=== PATIENT | male | born 1965 ===

== ENCOUNTER 2016-05-30 14:09 | Emergency (ER) | payer OTHER ==
--- NOTE | 2016-05-30 15:45 | C.PDOC ---
History Of Present Illness 50 year old male presents to the ED c/o lower back pain for several months. Patient notes pain worsen with movement and denies taking any OTC meds nor radiation of pain. Patient denies weakness or numbness, vomiting, fever, chills , SOB, chest pain, or any other complaints. Time Seen by Provider: 05/30/16 14:49 Chief Complaint (Nursing): Back Pain History Per: Patient History/Exam Limitations: no limitations Onset/Duration Of Symptoms: Days Current Symptoms Are (Timing): Still Present Severity: Mild Past Medical History Reviewed: Historical Data, Nursing Documentation, Vital Signs Vital Signs: Last Vital Signs Temp 98.2 F 05/30/16 17:06 Pulse 84 05/30/16 17:06 Resp 16 05/30/16 17:06 BP 134/84 05/30/16 17:06 Pulse Ox 99 05/30/16 17:06 - Medical History PMH: HTN Family History: States: Unknown Family Hx - Social History Hx Alcohol Use: No Hx Substance Use: No Review Of Systems Except As Marked, All Systems Reviewed And Found Negative. Constitutional: Negative for: Fever, Chills Cardiovascular: Negative for: Chest Pain Respiratory: Negative for: Shortness of Breath Gastrointestinal: Negative for: Nausea, Vomiting Musculoskeletal: Positive for: Back Pain (Lower back pain) Neurological: Negative for: Weakness (Lower back), Numbness (Lower back) Physical Exam - Physical Exam Appears: Non-toxic, No Acute Distress Skin: Warm, Dry Back: Vertebral Tenderness (Mild Lumbar tenderness L4 S1) Neurological/Psych: Oriented x3, Normal Speech, Normal Cognition, No Cerebellar Signs, Normal Motor, Normal Sensation ED Course And Treatment O2 Sat by Pulse Oximetry: 100 (Room air) Pulse Ox Interpretation: Normal Medical Decision Making Medical Decision Making: Plans: -Toradol -X-Ray LS spine X Rays unremarkable, Plan meds at home clinic f/u Disposition Counseled Patient/Family Regarding: Diagnosis, Need For Followup - Disposition Disposition: HOME/ ROUTINE Disposition Time: 16:32 Condition: GOOD Prescriptions: Naproxen [Naprosyn] 1 tab PO BID PRN #25 tab PRN Reason: Pain Instructions: Back Pain (ED) Print Language: AUSTRALIAN - Clinical Impression Clinical Impression: Low back pain - Scribe Statement The provider has reviewed the documentation as recorded by the Scribcami gonzalez All medical record entries made by the Scribe were at my direction and personally dictated by me. I have reviewed the chart and agree that the record accurately reflects my personal performance of the history, physical exam, medical decision making, and the department course for this patient. I have also personally directed, reviewed, and agree with the discharge instructions and disposition.
--- NOTE | 2016-05-30 16:45 | RAD ---
PROCEDURE: Radiographs of the Lumbar Spine. HISTORY: pain COMPARISON: Lumbosacral radiographs performed 01/20/12 FINDINGS: BONES: Alignment appears satisfactory. No listhesis. No acute displaced fracture identified. Mild degenerative changes including small anterior osteophyte formation. DISC SPACES: Intervertebral disc space narrowing. Vacuum disc phenomenon noted at L3-L4 and L5-S1. OTHER FINDINGS: None. IMPRESSION: Degenerative changes.
[2016-05-30 17:27] VITALS: BP 134/84; PULSE 84; RESP 16; TEMP 98.2
[2016-06-01 14:20] VITALS: O2SAT 100
== END 2016-05-30 17:26 | disposition home or self-care (01) ==
LOC: C.ER 14:09
DX: M54.5 Low back pain (principal)
CPT/HCPCS: 72100; 96372; 99283; J1885

== ENCOUNTER 2016-07-19 16:11 | Emergency (ER) | payer OTHER ==
[2016-07-19 16:16] VITALS: BP 160/83; PULSE 94; RESP 20; TEMP 98.1; O2SAT 100
--- NOTE | 2016-07-19 17:01 | C.PDOC ---
History Of Present Illness 50 yr old male presents to the ER with complaints of chronic back pain for the past 2 months. Patient reports using Tylenol and Advil for the pain. Denies chest pain, SOB, nausea, vomiting, abdominal pain, diarrhea, dysuria, hematuria , incontinence, saddle anesthesia, weakness or numbness. Time Seen by Provider: 07/19/16 16:30 Chief Complaint (Nursing): Back Pain History Per: Patient History/Exam Limitations: no limitations Onset/Duration Of Symptoms: Persistent (2 months ) Past Medical History Reviewed: Historical Data, Nursing Documentation, Vital Signs Vital Signs: Last Vital Signs Temp 98.1 F 07/19/16 16:14 Pulse 94 H 07/19/16 16:14 Resp 20 07/19/16 16:14 BP 160/83 H 07/19/16 16:14 Pulse Ox 100 07/19/16 17:03 - Medical History PMH: HTN Family History: States: No Known Family Hx - Social History Hx Alcohol Use: No Hx Substance Use: No Review Of Systems Except As Marked, All Systems Reviewed And Found Negative. Cardiovascular: Negative for: Chest Pain Respiratory: Negative for: Shortness of Breath Gastrointestinal: Negative for: Nausea, Vomiting, Abdominal Pain, Diarrhea Genitourinary: Negative for: Dysuria, Incontinence, Hematuria Musculoskeletal: Positive for: Back Pain, Other (No saddle anesthesia ) Neurological: Negative for: Weakness, Numbness Physical Exam - Physical Exam Appears: Well, Non-toxic, No Acute Distress Skin: Warm, Dry Head: Atraumatic, Normacephalic Chest: Symmetrical, No Tenderness Cardiovascular: Rhythm Regular, No Murmur Respiratory: Normal Breath Sounds, No Rales, No Rhonchi, No Stridor, No Wheezing Gastrointestinal/Abdominal: Normal Exam, Soft, No Tenderness, No Guarding, No Rebound Back: Other ((+) Hypertonicity of the lower back.) Extremity: Normal ROM, No Swelling Neurological/Psych: Oriented x3, Normal Speech, Normal Motor ED Course And Treatment O2 Sat by Pulse Oximetry: 100 Medical Decision Making Medical Decision Making: PLAN: * Flexeril PO * Motrin PO Disposition - Disposition [facility]errals: [facility]Non[facility]Staff[facility] - Disposition: HOME/ ROUTINE Disposition Time: 16:30 Condition: GOOD Additional Instructions: Thank you for letting us take care of you today. Your provider was Dr. Felton. You were treated for chronic lower back pain. The emergency medical care you received today was directed at your acute symptoms. If you were prescribed any medication, please fill it and take as directed. It may take several days for your symptoms to resolve. Return to the Emergency Department if your symptoms worsen, do not improve, or if you have any other problems. Please contact your doctor or call one of the physicians/clinics you have been referred to that are listed on the Patient Visit Information form that is included in your discharge packet. Bring any paperwork you were given at discharge with you along with any medications you are taking to your follow up visit. Our treatment cannot replace ongoing medical care by a primary care provider (PCP) outside of the emergency department. Thank you for allowing the [facility] team to be part of your care today. Follow up with your doctor in 3-4 days for re-evaluation. You can take the muscle relaxer with acetaminophen or ibuprofen. Prescriptions: Cyclobenzaprine [Cyclobenzaprine HCl] 10 mg PO Q8 PRN #20 tab PRN Reason: Muscle Spasm Instructions: Chronic Back Pain (ED) - Clinical Impression Clinical Impression: Chronic back pain - Scribe Statement The provider has reviewed the documentation as recorded by the Pennyibcami Simons Provider Attestation: All medical record entries made by the Desmond were at my direction and personally dictated by me. I have reviewed the chart and agree that the record accurately reflects my personal performance of the history, physical exam, medical decision making, and the department course for this patient. I have also personally directed, reviewed, and agree with the discharge instructions and disposition.
== END 2016-07-19 16:52 | disposition home or self-care (01) ==
LOC: C.ER 16:11
DX: G89.29 Other chronic pain (principal); M54.5 Low back pain

== ENCOUNTER 2016-08-25 18:44 | Emergency (ER) | payer OTHER ==
[2016-08-25 18:51] VITALS: TEMP 98.1; O2SAT 100
[2016-08-25] MEDS ORDERED: Oxycodone/Acetaminophen 5/325 mg Tab PO STA (20:01)
[2016-08-25] MEDS ORDERED: Oxycodone/Acetaminophen 5/325 mg Tab ONE (20:07)
[2016-08-25] MEDS ORDERED: Lidocaine 1% Inj (20ml) ONE (20:16)
--- NOTE | 2016-08-25 20:35 | C.PDOC ---
History Of Present Illness 50 y/o male presents to the ED for evaluation of pain, swelling and redness to left 3rd finger which began around 1 week ago. Patient denies direct injury/ trauma to affected area and extremity numbness/weakness. Time Seen by Provider: 08/25/16 19:35 Chief Complaint (Nursing): Finger,Hand,&Wrist History Per: Patient History/Exam Limitations: no limitations Onset/Duration Of Symptoms: Days (1 week ) Current Symptoms Are (Timing): Still Present Quality: "Pain" Additional History Per: Patient Past Medical History Reviewed: Historical Data, Nursing Documentation, Vital Signs Vital Signs: Last Vital Signs Temp 98.1 F 08/25/16 18:50 Pulse 68 08/25/16 20:45 Resp 18 08/25/16 20:45 BP 152/88 H 08/25/16 20:45 Pulse Ox 100 08/25/16 21:11 - Medical History PMH: HTN Surgical History: Appendectomy Family History: States: Unknown Family Hx - Social History Hx Alcohol Use: No Hx Substance Use: No - Immunization History Hx Tetanus Toxoid Vaccination: No Hx Influenza Vaccination: No Hx Pneumococcal Vaccination: No Review Of Systems Musculoskeletal: Positive for: Hand Pain (+left 3rd finger ) Skin: Positive for: Other (swelling and redness to left 3rd finger. no direct trauma/injury ) Neurological: Negative for: Weakness, Numbness Physical Exam - Physical Exam Appears: Non-toxic, No Acute Distress Skin: Warm, Dry Eye(s): bilateral: Normal Inspection Oral Mucosa: Moist Neck: Supple Extremity: Normal ROM, No Tenderness, Capillary Refill (less than 2 seconds ), No Deformity, Swelling (left 3rd digit ), Other (+redness and fluctuance at base of left 3rd digit. no active draining ) Neurological/Psych: Normal Speech, Normal Cognition, Normal Sensation Gait: Steady ED Course And Treatment O2 Sat by Pulse Oximetry: 100 (on RA) Pulse Ox Interpretation: Normal Progress Note: Patient received Percocet PO. - Incision & Drainage Of Abscess Anesthesia: Lidocaine 1% Prep Used: Sterile Water, Betadine Procedure: Incised W/Scalpel Blade#:, Drained Pus, Irrigated Cavity W/Saline, Probed To Break Up Loculations, Packed W/Gauze (and dressed - pt tolerated well) Disposition Counseled Patient/Family Regarding: Diagnosis, Need For Followup, Rx Given - Disposition Referrals: Katina Cesar MD [Medical Doctor] - Disposition: HOME/ ROUTINE Disposition Time: 21:07 Condition: STABLE Additional Instructions: Please follow up with PMD in 2 days for wound check Take meds as directed Return to ER if worse Prescriptions: Cephalexin [cephalexin] 500 mg PO QID #28 cap Naproxen [Naprosyn] 1 tab PO BID PRN #25 tab PRN Reason: Pain Instructions: Paronychia (ED) Forms: Work Excuse - Clinical Impression Clinical Impression: Paronychia of finger of left hand - 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 - Scribe Statement The provider has reviewed the documentation as recorded by the Scribe (Tala Rajan) All medical record entries made by the Scribe were at my direction and personally dictated by me. I have reviewed the chart and agree that the record accurately reflects my personal performance of the history, physical exam, medical decision making, and the department course for this patient. I have also personally directed, reviewed, and agree with the discharge instructions and disposition.
[2016-08-25 21:30] VITALS: BP 152/88; PULSE 68; RESP 18
== END 2016-08-25 21:30 | disposition home or self-care (01) ==
LOC: C.ER 18:44
DX: L03.012 Cellulitis of left finger (principal)

== ENCOUNTER 2016-12-05 16:21 | Emergency (ER) | payer OTHER ==
--- NOTE | 2016-12-05 17:58 | C.PDOC ---
History Of Present Illness 50 year old male presents to the ED with complaints of right arm pain for two weeks. Patient reports pain begins at the right upper back and radiates down the right arm with associated numbness to the right pinky. He notes he has an appointment to see a specialist at [facility] in [place] to have his "nerves checked" in 2 weeks. Patient denies trauma, injury, weakness, chest pain, shortness of breath, headache, or neck pain. Time Seen by Provider: 12/05/16 16:45 Chief Complaint (Nursing): Weakness/Neurological Deficit History Per: Patient History/Exam Limitations: no limitations Onset/Duration Of Symptoms: Days (2 weeks ) Current Symptoms Are (Timing): Still Present Seizure Or Post-ictal Symptoms: None Fall Associated With With Symptoms: No Recent travel outside of the [place]: No Past Medical History Reviewed: Historical Data, Nursing Documentation, Vital Signs Vital Signs: Last Vital Signs Temp 97.2 F L 12/05/16 18:19 Pulse 58 L 12/05/16 18:19 Resp 18 12/05/16 18:19 BP 126/72 12/05/16 18:19 Pulse Ox 100 12/05/16 20:41 - Medical History PMH: HTN Surgical History: Appendectomy Family History: States: Unknown Family Hx - Social History Hx Alcohol Use: No Hx Substance Use: No - Immunization History Hx Tetanus Toxoid Vaccination: No Hx Influenza Vaccination: No Hx Pneumococcal Vaccination: No Review Of Systems Cardiovascular: Negative for: Chest Pain Respiratory: Negative for: Shortness of Breath Musculoskeletal: Positive for: Arm Pain (right arm pain ), Back Pain (right upper back pain radiating down right arm ). Negative for: Neck Pain Neurological: Positive for: Numbness (right fifth digit ). Negative for: Weakness, Headache, Dizziness Physical Exam - Physical Exam Appears: Non-toxic, No Acute Distress Skin: Warm, Dry Head: Atraumatic, Normacephalic Eye(s): bilateral: Normal Inspection, PERRL, EOMI Neck: Normal ROM, No Midline Cervical Tenderness, No Paracervical Tenderness, Supple Cardiovascular: Rhythm Regular, No Murmur Respiratory: No Rales, No Rhonchi, No Wheezing, No Other (clear to auscultation bilaterally ) Back: No CVA Tenderness, No Vertebral Tenderness, No Paraspinal Tenderness Extremity: Normal ROM, Tenderness (posterior aspect of right arm and medial aspect of right elbow ), Capillary Refill (good capillary refill, less than two seconds ), No Deformity, No Swelling Pulses: Left Radial: Normal, Right Radial: Normal Neurological/Psych: Oriented x3, Normal Motor, Normal Sensation ED Course And Treatment O2 Sat by Pulse Oximetry: 100 (RA) Progress Note: Patient was given Flexeril and Naproxen. Disposition Counseled Patient/Family Regarding: Diagnosis, Need For Followup, Rx Given - Disposition Referrals: Pearl Bell MD [Staff Provider] - [facility] [Outside] Disposition: HOME/ ROUTINE Disposition Time: 18:00 Condition: STABLE Additional Instructions: Follow up with your pmd / ortho referral in 2 days for re-evaluation and follow up. Take medication as prescribed. Return to the ER at any time for any new or worsening symptoms. 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 - Scribe Statement The provider has reviewed the documentation as recorded by the Scribe Vicki Gonzalez All medical record entries made by the Pennyibcami were at my direction and personally dictated by me. I have reviewed the chart and agree that the record accurately reflects my personal performance of the history, physical exam, medical decision making, and the department course for this patient. I have also personally directed, reviewed, and agree with the discharge instructions and disposition.
[2016-12-05] MEDS ORDERED: Naproxen 550 mg Tab PO STA (18:10)
[2016-12-05] MEDS ORDERED: Naproxen 550 mg Tab PO ONE (18:19)
[2016-12-05 18:21] VITALS: BP 126/72; PULSE 58; RESP 18; TEMP 97.2
[2016-12-05 20:38] VITALS: O2SAT 100
== END 2016-12-05 18:20 | disposition home or self-care (01) ==
LOC: C.ER 16:21
DX: M79.601 Pain in right arm (principal); M54.12 Radiculopathy, cervical region; I10 Essential (primary) hypertension

== ENCOUNTER 2017-01-24 19:42 | Emergency (ER) | payer OTHER ==
[2017-01-24 19:56] VITALS: TEMP 97.3
[2017-01-24 20:13] VITALS: PULSE 74
--- NOTE | 2017-01-24 20:18 | C.PDOC ---
History Of Present Illness 51 year old male with a Hx of HTN and diabetes presents to the ER with a complaint of pain to the right arm for the past 4 months that has worsened today , associated with upper back pain and occasional numbness of the right pinky. Patient states he occasionally feels like he cannot adequately cash applications associate objects with his right hand. Denies weakness, numbness, or pain anywhere else. Chief Complaint (Nursing): Upper Extremity Problem/Injury History Per: Patient History/Exam Limitations: no limitations Onset/Duration Of Symptoms: Days Current Symptoms Are (Timing): Still Present Quality: "Pain" Exacerbating Factor(s): Strenuous Use Of Affected Area Recent travel outside of the [place]: No Past Medical History Reviewed: Historical Data, Nursing Documentation, Vital Signs Vital Signs: Last Vital Signs Temp 97.3 F L 01/24/17 19:51 Pulse 74 01/24/17 20:42 Resp 18 01/24/17 20:42 BP 188/90 H 01/24/17 20:42 Pulse Ox 100 01/24/17 20:51 - Medical History PMH: Diabetes, HTN Surgical History: Appendectomy Family History: States: Unknown Family Hx - Social History Hx Alcohol Use: No Hx Substance Use: No - Immunization History Hx Tetanus Toxoid Vaccination: No Hx Influenza Vaccination: No Hx Pneumococcal Vaccination: No Review Of Systems Musculoskeletal: Positive for: Arm Pain, Back Pain, Hand Pain. Negative for: Neck Pain, Shoulder Pain Neurological: Positive for: Numbness (Intermittently to right pinky) Physical Exam - Physical Exam Appears: Non-toxic, No Acute Distress Skin: Normal Color, Warm, Dry Head: Atraumatic, Normacephalic Eye(s): bilateral: Normal Inspection Oral Mucosa: Moist Neck: Normal, No Midline Cervical Tenderness, No Paracervical Tenderness, Supple Chest: Symmetrical, No Tenderness Cardiovascular: Rhythm Regular Respiratory: Normal Breath Sounds, No Rales, No Rhonchi, No Wheezing Gastrointestinal/Abdominal: Soft, No Tenderness Back: No Vertebral Tenderness, Paraspinal Tenderness (Reproducible right trapezius) Extremity: Normal ROM (x4), No Deformity, Other (5/5 motor strength to all extremities) Pulses: Left Radial: Normal, Right Radial: Normal, Left Dorsalis Pedis: Normal, Right Dorsalis Pedis: Normal Neurological/Psych: Oriented x3, Normal Speech, Normal Cranial Nerves, Normal Motor, Normal Sensation ED Course And Treatment ECG: Interpreted By Me ECG Rhythm: Sinus Rhythm ECG Interpretation: Normal O2 Sat by Pulse Oximetry: 100 (Room air) Pulse Ox Interpretation: Normal Medical Decision Making Medical Decision Making: Impression: Cervical radiculopathy, will treat with muscle relaxers and anti- inflammatory meds. Disposition - Disposition Referrals: [facility] [Outside] Disposition: HOME/ ROUTINE Disposition Time: 20:52 Condition: GOOD Prescriptions: Cyclobenzaprine [Cyclobenzaprine HCl] 10 mg PO TID #15 tab Naproxen 500 mg PO BID PRN #20 tab PRN Reason: Pain, Mild (1-3) Instructions: Cervical Radiculopathy (ED), Neck Exercises (GEN) Forms: Gen Discharge Inst Setswana, [employer] (Trinidadian) Print Language: TAJIK - Clinical Impression Clinical Impression: Cervical radiculopathy - Scribe Statement The provider has reviewed the documentation as recorded by the Scribe Jian Hurt All medical record entries made by the Scribe were at my direction and personally dictated by me. I have reviewed the chart and agree that the record accurately reflects my personal performance of the history, physical exam, medical decision making, and the department course for this patient. I have also personally directed, reviewed, and agree with the discharge instructions and disposition.
[2017-01-24] MEDS ORDERED: Naproxen 550 mg Tab PO STA (20:22)
[2017-01-24] MEDS ORDERED: Naproxen 550 mg Tab PO ONE (20:28)
[2017-01-24 20:42] VITALS: BP 188/90; RESP 18
[2017-01-24 20:55] VITALS: O2SAT 100
--- NOTE | 2017-01-28 11:29 | CARD ---
APPROVED REPORT EKG Measurement Heart [id number] <Conclusion> Normal sinus rhythm Possible Left atrial enlargement Borderline ECG
== END 2017-01-24 20:44 | disposition home or self-care (01) ==
LOC: C.ER 19:42
DX: M54.12 Radiculopathy, cervical region (principal); E11.9 Type 2 diabetes mellitus without complications

== ENCOUNTER 2017-08-19 15:09 | Emergency (ER) | payer SELFPAY ==
[2017-08-19 15:09] VITALS: BMI 24.2
[2017-08-19 15:24] VITALS: PULSE 62; TEMP 97.9; O2SAT 100
[2017-08-19 15:58] VITALS: BP 163/100; RESP 16
--- NOTE | 2017-08-19 16:42 | C.PDOC ---
History Of Present Illness 51 year old male presents to the ED for evaluation after he started feeling hot , dizzy and developed a headache while waiting at a warm bus stop two hours prior to arrival. Upon examination, patient states his symptoms have slightly improved but he still feels hot and tired. Patient reports history of Hypertension, but states he did not take his medication today. Patient denies chest pain, palpitations, shortness of breath, nausea, vomiting. Time Seen by Provider: 08/19/17 15:29 Chief Complaint (Nursing): Headache History Per: Patient History/Exam Limitations: no limitations Onset/Duration Of Symptoms: Hrs Current Symptoms Are (Timing): Better Quality: Aching Associated Symptoms: denies: Nausea, Vomiting Additional History Per: Patient Past Medical History Reviewed: Historical Data, Nursing Documentation, Vital Signs Vital Signs: Last Vital Signs Temp 97.9 F 08/19/17 15:21 Pulse 62 08/19/17 15:21 Resp 16 08/19/17 15:58 BP 163/100 H 08/19/17 15:58 Pulse Ox 100 08/19/17 20:20 - Medical History PMH: Back Problems, Diabetes, HTN Surgical History: Appendectomy Family History: States: Unknown Family Hx - Social History Hx Alcohol Use: No Hx Substance Use: No - Immunization History Hx Tetanus Toxoid Vaccination: No Hx Influenza Vaccination: No Hx Pneumococcal Vaccination: No Review Of Systems Cardiovascular: Negative for: Chest Pain, Palpitations Respiratory: Negative for: Shortness of Breath Gastrointestinal: Negative for: Nausea, Vomiting Neurological: Positive for: Headache, Dizziness Physical Exam - Physical Exam Appears: Non-toxic, No Acute Distress Skin: Normal Color, Warm, Dry Head: Atraumatic, Normacephalic Eye(s): bilateral: Normal Inspection Oral Mucosa: Moist Neck: Supple Chest: Symmetrical, No Deformity, No Tenderness Cardiovascular: Rhythm Regular, No Murmur Respiratory: Normal Breath Sounds, No Rales, No Rhonchi, No Wheezing Extremity: Normal ROM, Capillary Refill (less than 2 seconds ) Neurological/Psych: Oriented x3, Normal Speech, Normal Cognition ED Course And Treatment O2 Sat by Pulse Oximetry: 100 (on RA) Pulse Ox Interpretation: Normal Progress Note: Patient refuses bloodwork and IV Fluids. Nurse provided patient with water to drink and states he now feels better. Patient resting comfortably , showing no signs of distress and is stable for discharge. Patient eloped from the ED prior to receiving discharge paperwork. Disposition - Disposition Referrals: Katina eCsar MD [Medical Doctor] - Disposition: ELOPEMENT - ER ONLY Disposition Time: 16:39 Condition: STABLE Additional Instructions: Follow up with PMD within 1-2 days. Return to ED if feel worse. Forms: [employer] (Japanese) Print Language: CITIZEN OF [place] - Clinical Impression Clinical Impression: Heat exhaustion - Scribe Statement The provider has reviewed the documentation as recorded by the Scribe (Tala Rajan) All medical record entries made by the Scribe were at my direction and personally dictated by me. I have reviewed the chart and agree that the record accurately reflects my personal performance of the history, physical exam, medical decision making, and the department course for this patient. I have also personally directed, reviewed, and agree with the discharge instructions and disposition.
== END 2017-08-19 15:58 | disposition left against medical advice (07) ==
LOC: C.ER 15:09
DX: T67.5XXA Heat exhaustion, unspecified, initial encounter (principal)

== ENCOUNTER 2017-12-21 09:03 | Emergency (ER) | payer MEDICAID ==
[2017-12-21 09:03] VITALS: BMI 24.2
[2017-12-21 09:15] VITALS: BP 128/85; PULSE 75; RESP 18; TEMP 98.9; O2SAT 100
[2017-12-21] MEDS ORDERED: Dexamethasone 4 mg/1 ml IM STA (10:27)
--- NOTE | 2017-12-21 10:50 | C.PDOC ---
History Of Present Illness 52 year old male, with past medical history of neuropathy, presents to the ED for evaluation of back pain and bilateral hip pain that has worsened over the past few days. Patient states he has been seeing a specialist and taking medicine, without relief. He notes he sometimes feels off balance when walking. He denies fever, chills, abdominal pain or recent falls/direct trauma to the area. Time Seen by Provider: 12/21/17 09:28 Chief Complaint (Nursing): Hip Pain History Per: Patient History/Exam Limitations: no limitations Onset/Duration Of Symptoms: Days Current Symptoms Are (Timing): Worse Additional History Per: Patient Past Medical History Reviewed: Historical Data, Nursing Documentation, Vital Signs Vital Signs: Last Vital Signs Temp 98.9 F 12/21/17 09:13 Pulse 75 12/21/17 09:13 Resp 18 12/21/17 09:13 BP 128/85 12/21/17 09:13 Pulse Ox 100 12/21/17 09:13 - Medical History PMH: Back Problems, Diabetes, HTN Surgical History: Appendectomy Family History: States: Unknown Family Hx - Social History Hx Alcohol Use: No Hx Substance Use: No - Immunization History Hx Tetanus Toxoid Vaccination: No Hx Influenza Vaccination: No Hx Pneumococcal Vaccination: No Review Of Systems Constitutional: Negative for: Fever, Chills Gastrointestinal: Negative for: Abdominal Pain Musculoskeletal: Positive for: Other (bilateral hip pain ). Negative for: Back Pain Physical Exam - Physical Exam Appears: Non-toxic, No Acute Distress Skin: Normal Color, Warm, Dry, No Rash Head: Atraumatic, Normacephalic Eye(s): bilateral: Normal Inspection Oral Mucosa: Moist Neck: Normal ROM, No Midline Cervical Tenderness, No Paracervical Tenderness, Supple Chest: Symmetrical, No Deformity, No Tenderness Cardiovascular: Rhythm Regular, No Murmur Respiratory: Normal Breath Sounds, No Rales, No Rhonchi, No Wheezing Gastrointestinal/Abdominal: Soft, No Tenderness Back: No CVA Tenderness, Paraspinal Tenderness (diffuse, lumbar ) Extremity: Normal ROM, No Tenderness, Capillary Refill (less than 2 seconds ), No Deformity, No Swelling Neurological/Psych: Oriented x3, Normal Speech, Normal Cognition, Normal Sensation Gait: Steady ED Course And Treatment O2 Sat by Pulse Oximetry: 100 (on RA) Pulse Ox Interpretation: Normal Progress Note: On re-exam, the patient reports improvement of symptoms. Lungs are CTA, heart is RRR. Abdomen is soft, non-tender and the patient is tolerating PO well. Ambulatory in the Ed with steady gait. Follow up with the medical doctor within 1-2 days without fail. return if worsened. Medical Decision Making Medical Decision Making: Progress: Decadron IM, Toradol IM, Valium PO administered. Disposition - Disposition Referrals: Katina Cesar MD [Medical Doctor] - Disposition: HOME/ ROUTINE Disposition Time: 11:39 Condition: STABLE Additional Instructions: Follow up with the medical doctor within 1-2 days without fail. return if worsened. Prescriptions: diaZEpam [Valium] 5 mg PO TID #21 tab Naproxen [Naprosyn] 500 mg PO BID #20 tab Instructions: Low Back Pain in Adults Forms: [facility] (Solomon Islander) - Clinical Impression Clinical Impression: Sciatica - PA / PARK WARDEN / Resident Statement MD/DO has reviewed & agrees with the documentation as recorded. - Scribe Statement The provider has reviewed the documentation as recorded by the Scribe (Tala Rajan) All medical record entries made by the Scribe were at my direction and personally dictated by me. I have reviewed the chart and agree that the record accurately reflects my personal performance of the history, physical exam, medical decision making, and the department course for this patient. I have also personally directed, reviewed, and agree with the discharge instructions and disposition.
== END 2017-12-21 11:22 | disposition home or self-care (01) ==
LOC: C.ER 09:03
DX: M54.30 Sciatica, unspecified side (principal)
CPT/HCPCS: 96372; 99284; J1100; J1885

== ENCOUNTER 2018-01-14 14:46 | Emergency (ER) | payer MEDICAID ==
[2018-01-14 14:46] VITALS: BMI 24.2
[2018-01-14 15:18] VITALS: BP 136/85; PULSE 61; RESP 20; TEMP 98.5; O2SAT 100
[2018-01-14] MEDS ORDERED: Lidocaine 5% Patch TD STA (16:17)
[2018-01-14] MEDS ORDERED: Lidocaine 5% Patch TD ONE (16:27)
--- NOTE | 2018-01-14 16:39 | C.PDOC ---
History Of Present Illness 52 y/o male wth PMHx diabetes, presents to the ED complaining of chronic low back pain for months and possible neuropathy. Patient has been seen in the ED multiple times for same, most recently on 12/21 and was discharged home. He is currently taking gabapentin and naproxen without relief. No injury or trauma. , patient had MRI in March 2017 (sts unknown results), lumbar spine x-ray in 2016. He otherwise denies any nausea, vomiting, flank pain, dysuria, fever, urinary or bowel incontinence, saddle anesthesia, weakness, numbness or tingling or other associated symptoms. Time Seen by Provider: 01/14/18 15:36 Chief Complaint (Nursing): Back Pain History Per: Patient History/Exam Limitations: no limitations Onset/Duration Of Symptoms: Days Current Symptoms Are (Timing): Still Present Previous Symptoms: Back Pain Associated Symptoms: None Past Medical History Reviewed: Historical Data, Nursing Documentation, Vital Signs Vital Signs: Last Vital Signs Temp 98.5 F 01/14/18 15:15 Pulse 61 01/14/18 15:15 Resp 20 01/14/18 15:15 BP 136/85 01/14/18 15:15 Pulse Ox 100 01/14/18 15:15 - Medical History PMH: Back Problems, Diabetes, HTN Surgical History: Appendectomy Family History: States: Unknown Family Hx - Social History Hx Alcohol Use: No Hx Substance Use: No - Immunization History Hx Tetanus Toxoid Vaccination: No Hx Influenza Vaccination: No Hx Pneumococcal Vaccination: No Review Of Systems Constitutional: Negative for: Fever, Chills Gastrointestinal: Negative for: Nausea, Vomiting, Diarrhea Genitourinary: Negative for: Dysuria, Frequency, Incontinence Musculoskeletal: Positive for: Back Pain Neurological: Negative for: Weakness, Numbness, Incoordination Physical Exam - Physical Exam Appears: Non-toxic, No Acute Distress Skin: Warm, Dry Head: Atraumatic, Normacephalic Eye(s): bilateral: PERRL, EOMI Neck: Normal ROM, No Midline Cervical Tenderness Chest: Symmetrical, No Tenderness Cardiovascular: Rhythm Regular, No Murmur Respiratory: Normal Breath Sounds, No Rales, No Rhonchi, No Wheezing Gastrointestinal/Abdominal: Bowel Sounds, Soft, No Tenderness Back: Vertebral Tenderness (mild midline lumbar tenderness), Muscle Spasm, Paraspinal Tenderness (mild right paralumbar tenderness) Extremity: Normal ROM, No Tenderness, No Pedal Edema, No Deformity Neurological/Psych: Oriented x3, Normal Speech, Normal Cognition, Normal Motor, Normal Sensation ED Course And Treatment O2 Sat by Pulse Oximetry: 100 (RA) Pulse Ox Interpretation: Normal Medical Decision Making Medical Decision Making: Plan: Administered Tylenol PO and applied lidoderm patch for pain control. On reeval, patient reports improvement in pain and is agreeable to discharge plan. Will d/c with muscle relaxant. Discussed with patient that he needs to f/u mri results with pmd. Disposition Counseled Patient/Family Regarding: Diagnosis, Need For Followup, Rx Given - Disposition Referrals: Katina Cesar MD [Medical Doctor] - Disposition: HOME/ ROUTINE Disposition Time: 17:09 Condition: GOOD Additional Instructions: Qutese el parche en 12 horas. Piensa allie gabapentina y naproxeno. Bety relajante muscular segn lo prescrito, te da sueo. No conducir Irene un seguimiento con kumar mdico el 5 de diciembre segn lo planificado y revise los resultados de kumar MRI. Take patch off in 12 hours. COntinue taking gabapentin and naproxen. Take muscle relaxant as prescribed- makes you sleepy. No driving. Follow up with oyur doctor on Jan 21 as planned and review results of your MRI. Prescriptions: Cyclobenzaprine [Cyclobenzaprine HCl] 10 mg PO Q8 #9 tab Instructions: Low Back Pain (DC) Forms: Gen Discharge Inst [employer], [employer] (Tamazight) Print Language: [place] - Clinical Impression Clinical Impression: Chronic back pain - PA / REGULATORY COMPLIANCE DIRECTOR / Resident Statement MD/DO has reviewed & agrees with the documentation as recorded. - Scribe Statement The provider has reviewed the documentation as recorded by the Desmond Smith All medical record entries made by the Pennyibcami were at my direction and personally dictated by me. I have reviewed the chart and agree that the record accurately reflects my personal performance of the history, physical exam, medical decision making, and the department course for this patient. I have also personally directed, reviewed, and agree with the discharge instructions and disposition.
== END 2018-01-14 17:26 | disposition home or self-care (01) ==
LOC: C.ER 14:46
DX: G89.29 Other chronic pain (principal); M54.5 Low back pain

== ENCOUNTER 2018-06-24 20:01 | Emergency (ER) | payer MEDICAID ==
[2018-06-24 20:01] VITALS: BMI 24.2
[2018-06-24 20:06] VITALS: BP 169/94; PULSE 70; RESP 20; TEMP 98.4; O2SAT 99
--- NOTE | 2018-06-24 20:13 | C.PDOC ---
History Of Present Illness 52 year old male complaining of chronic back pain, has been seen in the ED for the past few months. Patient is on gabapentin, went to his neurologist last month for his lower back, states his gabapentin was changed from 300mg to 600mg. Patient is aware he has Hx of disc problem at L1-4, he has not seen ortho for his issue, states his doctor only sent him to see neurology. He is also awaiting approval from insurance for steroid back injection. Denies new injury, fever, change in urination, change in bowel movements, abdominal pain, SOB, or chest pain. Time Seen by Provider: 06/24/18 20:10 Chief Complaint (Nursing): Back Pain History Per: Patient History/Exam Limitations: no limitations Onset/Duration Of Symptoms: Days Current Symptoms Are (Timing): Still Present Quality Of Discomfort: Unable To Describe Previous Symptoms: Chronic Pain Associated Symptoms: None Past Medical History Reviewed: Historical Data, Nursing Documentation, Vital Signs Vital Signs: Last Vital Signs Temp 98.4 F 06/24/18 20:04 Pulse 70 06/24/18 20:04 Resp 20 06/24/18 20:04 BP 169/94 H 06/24/18 20:04 Pulse Ox 99 06/24/18 20:04 Primary Care Provider: Susan Whitmore - Medical History PMH: Back Problems, Diabetes, HTN Surgical History: Appendectomy Family History: States: Unknown Family Hx - Social History Hx Alcohol Use: No Hx Substance Use: No - Immunization History Hx Tetanus Toxoid Vaccination: No Hx Influenza Vaccination: No Hx Pneumococcal Vaccination: No Review Of Systems Constitutional: Negative for: Fever Cardiovascular: Negative for: Chest Pain Respiratory: Negative for: Shortness of Breath Gastrointestinal: Negative for: Abdominal Pain Genitourinary: Negative for: Dysuria, Incontinence, Hematuria Musculoskeletal: Positive for: Back Pain Neurological: Negative for: Weakness, Numbness Physical Exam - Physical Exam Appears: Non-toxic Skin: Normal Color, Warm, No Rash Head: Atraumatic, Normacephalic Gastrointestinal/Abdominal: Soft, No Tenderness Back: No CVA Tenderness, No Vertebral Tenderness, Paraspinal Tenderness (left lumbar), Other (Ambulatory with upright steady gait.) Extremity: Normal ROM (x4) Neurological/Psych: Oriented x3, Normal Speech, Normal Motor, Normal Sensation Gait: Steady ED Course And Treatment O2 Sat by Pulse Oximetry: 99 (Room air) Pulse Ox Interpretation: Normal Medical Decision Making Medical Decision Making: Patient given skelaxin and proper dose of ibuprofen to add to gabapentin and referred to ortho. Disposition Counseled Patient/Family Regarding: Diagnosis, Need For Followup, Rx Given - Disposition Referrals: Pearl Bell MD [Staff Provider] - Antonio Lui III, MD [Staff Provider] - Disposition: HOME/ ROUTINE Disposition Time: 21:15 Condition: STABLE Prescriptions: Ibuprofen [Motrin Tab] 800 mg PO TID PRN #21 tab PRN Reason: Pain, Moderate (4-7) Metaxalone [Skelaxin] 800 mg PO TID 7 Days tablet Instructions: Chronic Pain (DC) Forms: Gen Discharge Inst Malian, Spinal Integration (Malian), Work Excuse Print Language: [place] - Clinical Impression Clinical Impression: Chronic back pain - PA / ENVIRONMENTAL ANALYST / Resident Statement MD/DO has reviewed & agrees with the documentation as recorded. - Scribe Statement The provider has reviewed the documentation as recorded by the Scribcami Hurt All medical record entries made by the Scribe were at my direction and personally dictated by me. I have reviewed the chart and agree that the record accurately reflects my personal performance of the history, physical exam, medical decision making, and the department course for this patient. I have also personally directed, reviewed, and agree with the discharge instructions and disposition.
== END 2018-06-24 21:29 | disposition home or self-care (01) ==
LOC: C.ER 20:01
DX: G89.29 Other chronic pain (principal); M54.9 Dorsalgia, unspecified
CPT/HCPCS: 96372; 99283; J1885